=== PATIENT | female | born 1990 | race Caucasian/White ===

== ENCOUNTER 2018-09-20 12:45 | Emergency (ER) | payer MEDICAID ==
[2018-09-20 13:06] LABS: URINE SOURCE CLEAN C
[2018-09-20 13:10] LABS: URINE BILIRUBIN NEGATIVE (NEGATIVE); URINE BLOOD NEGATIVE (NEGATIVE); URINE GLUCOSE (UA) NEGATIVE (NEGATIVE); URINE KETONE NEGATIVE (NEGATIVE); URINE LEUKOCYTE ESTERASE TRACE (NEGATIVE); URINE MICROSCOPIC INDICATED? YES; URINE PROTEIN NEGATIVE (NEGATIVE)
[2018-09-20 13:19] LABS: URINE CLARITY TURBID (CLEAR); URINE COLOR ORANGE
[2018-09-20 13:21] LABS: URINE NITRATE COLOR INTERFERENCE (NEGATIVE); URINE RBC NONE SEEN /hpf (0-5)
[2018-09-20 13:23] LABS: URINE BACTERIA 2+ /hpf (NONE SEEN); URINE EPITHELIAL CELLS MODERATE /lpf (FEW)
--- NOTE | 2018-09-20 13:29 | ED Physician Chart ---
ED Chief Complaint/HPI - Patient Information Date Seen:: 09/20/18 Time Seen:: 13:02 Chief Complaint:: Urinary tract infection History of Present Illness:: Urinary tract infection in a patient who took Azo today. She stated that she has no primary care physician and that she has no insurance. No c/o N, D, C. No abdominal pain. Vomited one time this a.m. and 2 times last week. Although this problem could have been treated with a primary care physician or clinic, the patient stated that the only reason why she came to the emergency room was because she had no insurance and assumed that the services would be covered by emergency [facility] or by some other state based services. MISCELLANEOUS RE OBSERVATIONS REGARDING PATIENT'S DESIRE TO OBTAIN EMERGENCY MED[facility] FOR THIS VISIT WHICH CALLS INTO QUESTION HER FINANCIAL NEED FOR EMERGENCY MEDI[facility]: Patient asked triage nurse Ankit how she was going to pay for her visit today. Patient obviously spends her money on various other expenditures than health care. She is carrying around a large, sign designer Chuck Cummings purse, wearing 3 carat jose earrings inlaid in pechanga, has jose belly button piercings x 2. Hair extensions, eyelash extensions, acrylic nails and expensive, large abdominal tattoos. 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 She owns a [employer] and [employer] business. Allergies:: Allergies Allergy/AdvReac Type Severity Reaction Status Date / Time tramadol Allergy Verified 09/20/18 13:00 Vitals:: Vital Signs - 8 hr 09/20/18 13:02 Temp 98.5 F HR 80 RR 18 BP 125/78 O2 Sat % 99 Historian:: Patient Review:: Nurse's Note Reviewed ED Review of Systems - Review of Systems General/Constitutional: No fever, No chills, No weight loss, No weakness, No diaphoresis, No edema, No loss of appetite Skin: No skin lesions, No rash, No bruising Head: No headache, No light-headedness Eyes: No loss of vision, No pain, No diplopia ENT: No earache, No nasal drainage, No sore throat, No tinnitus Neck: No neck pain, No swelling, No thyromegaly, No stiffness, No mass noted Cardio Vascular: No chest pain, No palpitations, No PND, No orthopnea, No edema Pulmonary: No SOB, No cough, No sputum, No wheezing GI: Nausea, Vomiting G/U: Dysuria, Frequency, No hematuria, No nacturia Watch Assembler: Abnormal vaginal bleeding Musculoskeletal: No bone or joint pain, No back pain, No muscle pain Endocrine: No polyuria, No polydipsia Psychiatric: No prior psych history, No depression, No anxiety, No suicidal ideation Hematopoietic: No bruising, No lymphadenopathy Allergic/Immuno: No urticaria, No angioedema Neurological: No syncope, No focal symptoms, No weakness, No paresthesia, No headache, No seizure, No dizziness, No confusion, No vertigo ED Past Medical History - Past Medical History Obtainable: Yes Past Medical History: No significant medical hx Family Medical History - Family Member Mother History Unknown: Yes ED Physical Exam - Physical Examination General/Constitutional: Awake, Well-developed, well-nourished, Alert, No distress, GCS 15, Non-toxic appearing, Ambulatory Head: Atraumatic Eyes: Lids, conjuctiva normal, PERRL, EOMI Skin: Nl inspection, No rash, No skin lesions, No ecchymosis, Well hydrated, No lymphadenopathy Other Skin comments:: expensive looking tattoos across the lower abdominal area with jose piercings at the umbilicus. Neck: Nontender, No nuchal rigidity Respiratory: Nl effort/Exclusion, Clear to Auscultation, No Wheeze/Rhonchi/Rales Cardio Vascular: RRR, No murmur, gallop, rubs, NL S1 S2 GI: No tenderness/rebounding/guarding, No organomegaly, No hernia, Normal BS's, Nondistended, No mass/bruits, No McBurney tenderness : No CVA tenderness Extremities: No tenderness or effusion, Full ROM, normal strength in all extremities, No edema, Normal digits & nails Neuro/Psych: Alert/oriented, Judgement/insight normal, Mood normal, Normal gait Misc: Normal back ED Labs/Radiology/EKG Results - Lab Results Results: Laboratory Tests 09/20/18 09/20/18 13:01 13:03 Urine Color ORANGE Urine Clarity TURBID H Urine pH 6.0 Ur Specific [place] 1.015 Urine Protein NEGATIVE Urine Glucose (UA) NEGATIVE Urine Ketones NEGATIVE Urine Blood NEGATIVE Urine Nitrate COLOR INTERFERENCE Urine Bilirubin NEGATIVE Urine Urobilinogen 1.0 Ur Leukocyte Esterase TRACE H Urine Test NEGATIVE ED Assessment - Assessment General Assessment: MISCELLANEOUS RE OBSERVATIONS REGARDING PATIENT'S DESIRE TO OBTAIN EMERGENCY MEDI-[facility] FOR THIS VISIT WHICH CALLS INTO QUESTION HER FINANCIAL NEED FOR EMERGENCY MEDI-RAD[facility]: Patient asked triage nurse Ankit how she was going to pay for her visit today. Patient obviously spends her money on various other expenditures than health care. She is carrying around a large, sign designer Chuck Cummings purse, wearing 3 carat [employer] earrings inlaid in pechanga, has jose belly button piercings x 2. Hair extensions, eyelash extensions, acrylic nails and expensive, large abdominal tattoos. 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 ED Septic Shock - . Is Septic Shock (SBP<90, OR Lactate>4 mmol\L) present?: No - <6hrs of presentation: Vital Signs: Vital Signs - 8 hr 09/20/18 13:02 Temp 98.5 F HR 80 RR 18 BP 125/78 O2 Sat % 99 ED Reassessment (Disposition) - Reassessment Reassessment Condition:: Unchanged - Diagnosis Diagnosis:: Uncomplicated urinary tract infection without any evidence of a urinary tract infection. Vomiting times x 1 this a.m., resolved. - Aftercare/Follow up Instructions Aftercare/Follow-Up Instructions:: Refer to Discharge Instructions Notes:: follow up with primary care physician as needed. Referral given to County. follow up with an wood scrap handler regarding your abnormal periods if this concerns you. NO SEX DURING TREATMENT FOR THE URINARY TRACT INFECTION. Follow a bland diet: no caffeine, citrus or dairy products to avoid vomiting. - Patient Disposition Discharge/Transfer:: Home Condition at Disposition:: Stable, Unchanged
== END 2018-09-20 14:15 | disposition home or self-care (01) ==
LOC: ER 12:45
DX: N39.0 Urinary tract infection, site not specified (principal); Z88.5 Allergy status to narcotic agent
CPT/HCPCS: 81001-TC; 81025-TC; 87086-90; Z7502